=== PATIENT | male | born 1955 | race Caucasian/White ===

== ENCOUNTER 2021-05-18 17:44 | Emergency (ER) | payer MEDICARE ==
--- NOTE | 2021-05-18 17:57 | ED ---
General Adult HPI <Fouzia Palmer - Last Filed: 05/18/21 17:53> - General Source: patient, family, RN notes reviewed, old records reviewed - History of Present Illness -: hour(s) (5) Severity scale (1-10): 0 Consistency: now resolved Associated Symptoms: diaphoresis, malaise, other (dizziness) Treatments Prior to Arrival: Aspirin (baby) <Camilo Ruffin - Last Filed: 05/18/21 22:43> - General Stated complaint: Cardiac history, dizziness, sweats Time Seen by Provider: 05/18/21 17:53 - History of Present Illness Initial comments: 66 year-old male patient presents for evaluation after having an episode of sweating. States that it started when he woke up from a nap. He did have a cardiac stent put in one year ago. He is reporting some dizziness. Denies any chest pain or shortness of breath. States he does feel like there is some in digestion or like he has to burp. States his blood pressures were mildly elevated this evening. Denies fever or chills. Denies any vomiting or diarrhea. Denies history of diabetes or low blood sugars. Did take a baby aspirin prior to arrival. (Fouzia Palmer) Well-appearing 66-year-old male presents to the emergency room, alert and oriented 4 with complaints of dizziness that started after taking a nap today around 4:30. Patient states that he was out golfing this afternoon and he had not eaten anything since breakfast. He states when he came home and lay down to take a nap he woke up diaphoretic and dizzy. He denies any chest pain or difficulty breathing no recent sick contacts. He does have a history of hypertension and hypercholesterolemia and cardiac stent that was placed in April of last year. He does take carvedilol baby aspirin and a statin. This has never happened to him before. His symptoms have resolved. He states he normally has a heart rate around 50. (Camilo Ruffin) - Related Data Allergies Allergy/AdvReac Type Severity Reaction Status Date / Time No Known Allergies Allergy Verified 05/18/21 17:58 Review of Systems ROS Other: All systems not noted in ROS Statement are negative. <Fouzia Palmer - Last Filed: 05/18/21 17:53> ROS Other: All systems not noted in ROS Statement are negative. <Camilo Ruffin - Last Filed: 05/18/21 22:43> ROS Statement: Those systems with pertinent positive or pertinent negative responses have been documented in the HPI. General Exam General appearance: alert, in no apparent distress, other (This is a well developed, well nourished adult male patient in no acute distress.) Eye exam: Present: normal appearance, PERRL, EOMI. Absent: scleral icterus, conjunctival injection, periorbital swelling ENT exam: Present: normal exam, normal oropharynx, mucous membranes moist Cardiovascular Exam: Present: normal rhythm, bradycardia, normal heart sounds. Absent: systolic murmur, diastolic murmur, rubs, gallop, clicks GI/Abdominal exam: Present: soft, normal bowel sounds. Absent: distended, tenderness, guarding, rebound, rigid Neurological exam: Present: alert, oriented X3, CN II-XII intact Psychiatric exam: Present: normal affect, normal mood Skin exam: Present: warm, dry, intact, normal color. Absent: rash <Fouzia Palmer - Last Filed: 05/18/21 17:53> Limitations: no limitations General appearance: alert, in no apparent distress Head exam: Present: atraumatic, normocephalic, normal inspection Eye exam: Present: normal appearance, PERRL, EOMI. Absent: scleral icterus, conjunctival injection, periorbital swelling ENT exam: Present: normal exam, normal oropharynx, mucous membranes moist Neck exam: Present: normal inspection, full ROM. Absent: tenderness, meningismus, lymphadenopathy, thyromegaly Respiratory exam: Present: normal lung sounds bilaterally. Absent: respiratory distress, wheezes, rales, rhonchi, stridor, chest wall tenderness, accessory muscle use Cardiovascular Exam: Present: bradycardia, normal heart sounds. Absent: JVD GI/Abdominal exam: Present: soft, normal bowel sounds, hyperactive bowel sounds. Absent: distended, tenderness, guarding, rebound, rigid Extremities exam: Present: normal inspection, full ROM, normal capillary refill. Absent: tenderness, pedal edema, joint swelling, calf tenderness Back exam: Absent: tenderness Neurological exam: Present: alert, oriented X3 Psychiatric exam: Present: normal affect, normal mood Skin exam: Present: warm, dry, intact, normal color. Absent: rash, cyanosis, diaphoretic, petechiae, pallor <Camilo Ruffin - Last Filed: 05/18/21 22:43> Course Vital Signs 05/18/21 05/18/21 05/18/21 17:52 20:35 21:15 Temperature 97.6 F 97.9 F Pulse Rate 54 L 49 L Pulse Rate [ 51 L Right Pulse Oximetery] Respiratory 19 18 18 Rate Blood Pressure 160/86 174/95 Blood Pressure 122/87 [Right Arm Sitting] Blood Pressure 115/80 [Right Arm Standing] Blood Pressure 142/81 [Right Arm Supine] O2 Sat by Pulse 97 97 Oximetry EKG Findings - EKG Results: EKG: sinus rhythm (Ventricular rate of 46, MI interval 0.220, QRS 0.102, QTC 0.441; first-degree AV block) <Camilo Ruffin - Last Filed: 05/18/21 22:43> Medical Decision Making - Lab Data Result diagrams: 05/18/21 18:33 05/18/21 18:33 <Camilo Ruffin - Last Filed: 05/18/21 22:43> - Medical Decision Making Well-appearing 66-year-old male presents to the emergency room, alert and oriented 4 with complaints of dizziness that started after taking a nap today around 4:30. Patient states that he was out golfing this afternoon and he had not eaten anything since breakfast. He states when he came home and lay down to take a nap he woke up diaphoretic and dizzy. He denies any chest pain or difficulty breathing no recent sick contacts. He does have a history of hypertension and cardiac stent that was placed in April of last year. He does take carvedilol, baby aspirin and a statin. His symptoms have resolved. He states he normally has a heart rate around 50. EKG shows sinus bradycardia with a first-degree AV block rate of 46. No ST el evation. Troponin is negative at 0.012. Electrolytes are unremarkable however his blood glucose level was 69. This is consistent with patient not eating anything since this morning's breakfast. There is no evidence of leukocytosis. Chest x-ray shows normal chest, heart and mediastinum. Lungs are clear. Patient has had no further episodes in the emergency room. He has had no symptoms of shortness of breath or chest pain or dizziness. His heart rate is normally bradycardic around 50. His blood glucose is up to 170. This is likely a hypoglycemic episode that caused his dizziness and diaphoresis. He is tolerating fluids and food in the emergency room. He'll be discharged home to follow up with his primary care doctor this week. Return to the emergency room with any new or worsening symptoms. Case was discussed with Dr. Thompson. (Camilo Ruffin) - Lab Data Lab Results 05/18/21 05/18/21 05/18/21 Range/Units 18:33 18:33 18:33 WBC 9.5 (3.8-10.6) k/uL RBC 5.64 (4.30-5.90) m/uL Hgb 17.4 (13.0-17.5) gm/dL Hct 51.8 (39.0-53.0) % MCV 91.9 (80.0-100.0) fL MCH 30.8 (25.0-35.0) pg MCHC 33.5 (31.0-37.0) g/dL RDW 12.0 (11.5-15.5) % Plt Count 255 (150-450) k/uL MPV 7.7 Neutrophils % 82 % Lymphocytes % 9 % Monocytes % 5 % Eosinophils % 2 % Basophils % 1 % Neutrophils # 7.8 H (1.3-7.7) k/uL Lymphocytes # 0.8 L (1.0-4.8) k/uL Monocytes # 0.5 (0-1.0) k/uL Eosinophils # 0.2 (0-0.7) k/uL Basophils # 0.1 (0-0.2) k/uL PT 10.6 (9.0-12.0) sec INR 1.0 (<1.2) APTT 23.5 (22.0-30.0) sec Sodium 140 (137-145) mmol/L Potassium 4.3 (3.5-5.1) mmol/L Chloride 101 (98-107) mmol/L Carbon Dioxide 28 (22-30) mmol/L Anion Gap 11 mmol/L BUN 17 (9-20) mg/dL Creatinine 1.07 (0.66-1.25) mg/dL Est GFR (CKD-EPI)AfAm 83 (>60 ml/min/1.73 sqM) Est GFR (CKD-EPI)NonAf 72 (>60 ml/min/1.73 sqM) Glucose 69 L (74-99) mg/dL Calcium 9.9 (8.4-10.2) mg/dL Magnesium 2.1 (1.6-2.3) mg/dL Total Bilirubin 0.9 (0.2-1.3) mg/dL AST 26 (17-59) U/L ALT 20 (4-49) U/L Alkaline Phosphatase 102 (38-126) U/L Troponin I (0.000-0.034) ng/mL Total Protein 8.1 (6.3-8.2) g/dL Albumin 5.0 (3.5-5.0) g/dL Urine Color Urine Appearance (Clear) Urine pH (5.0-8.0) Ur Specific [place] (1.001-1.035) Urine Protein (Negative) Urine Glucose (UA) (Negative) Urine Ketones (Negative) Urine Blood (Negative) Urine Nitrite (Negative) Urine Bilirubin (Negative) Urine Urobilinogen (<2.0) mg/dL Ur Leukocyte Esterase (Negative) Urine RBC (0-5) /hpf Ur Squamous Epith Cells (0-4) /hpf Urine Mucus (None) /hpf 05/18/21 05/18/21 Range/Units 18:33 20:35 WBC (3.8-10.6) k/uL RBC (4.30-5.90) m/uL Hgb (13.0-17.5) gm/dL Hct (39.0-53.0) % MCV (80.0-100.0) fL MCH (25.0-35.0) pg MCHC (31.0-37.0) g/dL RDW (11.5-15.5) % Plt Count (150-450) k/uL MPV Neutrophils % % Lymphocytes % % Monocytes % % Eosinophils % % Basophils % % Neutrophils # (1.3-7.7) k/uL Lymphocytes # (1.0-4.8) k/uL Monocytes # (0-1.0) k/uL Eosinophils # (0-0.7) k/uL Basophils # (0-0.2) k/uL PT (9.0-12.0) sec INR (<1.2) APTT (22.0-30.0) sec Sodium (137-145) mmol/L Potassium (3.5-5.1) mmol/L Chloride (98-107) mmol/L Carbon Dioxide (22-30) mmol/L Anion Gap mmol/L BUN (9-20) mg/dL Creatinine (0.66-1.25) mg/dL Est GFR (CKD-EPI)AfAm (>60 ml/min/1.73 sqM) Est GFR (CKD-EPI)NonAf (>60 ml/min/1.73 sqM) Glucose (74-99) mg/dL Calcium (8.4-10.2) mg/dL Magnesium (1.6-2.3) mg/dL Total Bilirubin (0.2-1.3) mg/dL AST (17-59) U/L ALT (4-49) U/L Alkaline Phosphatase (38-126) U/L Troponin I <0.012 (0.000-0.034) ng/mL Total Protein (6.3-8.2) g/dL Albumin (3.5-5.0) g/dL Urine Color Yellow Urine Appearance Clear (Clear) Urine pH 5.0 (5.0-8.0) Ur Specific [place] 1.013 (1.001-1.035) Urine Protein Negative (Negative) Urine Glucose (UA) Negative (Negative) Urine Ketones Trace H (Negative) Urine Blood Trace H (Negative) Urine Nitrite Negative (Negative) Urine Bilirubin Negative (Negative) Urine Urobilinogen <2.0 (<2.0) mg/dL Ur Leukocyte Esterase Negative (Negative) Urine RBC 1 (0-5) /hpf Ur Squamous Epith Cells <1 (0-4) /hpf Urine Mucus Rare H (None) /hpf Disposition <Fouzia Palmer - Last Filed: 05/18/21 17:53> Is patient prescribed a controlled substance at d/c from ED?: No Time of Disposition: 21:24 <Camilo Ruffin - Last Filed: 05/18/21 22:43> Clinical Impression: Hypoglycemia Disposition: HOME SELF-CARE Condition: Good Instructions (If sedation given, give patient instructions): Non-diabetic Hypoglycemia (ED) Additional Instructions: Follow-up with your primary care doctor this week. Return to the emergency room with any new or worsening symptoms. Referrals: Nonstaff,Physician [Primary Care Provider] - 1-2 days
[2021-05-18 18:41] LABS: Basophils # (A) 0.1 k/uL (0-0.2); Basophils % (A) 1 %; Eosinophils # (A) 0.2 k/uL (0-0.7); Eosinophils % (A) 2 %; HCT 51.8 % (39.0-53.0); HGB 17.4 gm/dL (13.0-17.5); Lymphocytes # (A) 0.8 k/uL (1.0-4.8); Lymphocytes % (A) 9 %; MCH 30.8 pg (25.0-35.0); MCHC 33.5 g/dL (31.0-37.0); MCV 91.9 fL (80.0-100.0); Mean Platelet Volume 7.7; Monocytes # (A) 0.5 k/uL (0-1.0); Monocytes % (A) 5 %; Neutrophils # (A) 7.8 k/uL (1.3-7.7); Neutrophils % (A) 82 %; Platelet Count 255 k/uL (150-450); RBC 5.64 m/uL (4.30-5.90); WBC 9.5 k/uL (3.8-10.6)
[2021-05-18 18:53] LABS: Calcium 9.9 mg/dL (8.4-10.2); Magnesium 2.1 mg/dL (1.6-2.3); Potassium 4.3 mmol/L (3.5-5.1); Total Bilirubin 0.9 mg/dL (0.2-1.3); Total Protein 8.1 g/dL (6.3-8.2)
[2021-05-18 19:06] LABS: Partial Thromboplastin Time 23.5 sec (22.0-30.0); Prothrombin Time 10.6 sec (9.0-12.0)
--- NOTE | 2021-05-18 20:12 | XR ---
EXAMINATION TYPE: XR chest 2V DATE OF EXAM: 05/18/2021 COMPARISON: NONE HISTORY: Chest pain TECHNIQUE: 2 views FINDINGS: Heart and mediastinum are normal. Lungs are clear. Diaphragm is normal. Bony thorax is inta ct. IMPRESSION: Normal chest.
[2021-05-18 20:48] VITALS: RESP 18
[2021-05-18 20:55] LABS: Appearance,Urine Clear (Clear); Bilirubin,Urine Negative (Negative); Blood,Urine Trace (Negative); Color,Urine Yellow; Glucose,Urine (UA) Negative (Negative); Ketones,Urine Trace (Negative); Leukocyte Esterase,Urine Negative (Negative); Mucus,Urine Rare /hpf; Nitrite,Urine Negative (Negative); Protein,Urine Negative (Negative); RBC,Urine 1 /hpf (0-5); Specific Gravity,Urine 1.013 (1.001-1.035); Squamous Epithelial Cell,Urine <1 /hpf (0-4); Urobilinogen,Urine <2.0 mg/dL (<2.0)
[2021-05-18 21:35] VITALS: TEMP 97.9
[2021-05-18 22:43] LABS: Glucose,Whole Blood 173 mg/dL (75-99)
[2021-05-18 23:18] VITALS: BP 121/79; PULSE 48
== END 2021-05-18 23:19 | disposition home or self-care (01) ==
LOC: EC 17:44
DX: E16.2 Hypoglycemia, unspecified (principal); E78.5 Hyperlipidemia, unspecified
CPT/HCPCS: 36415; 71046; 80053; 81001; 83735; 84484; 85025; 85610; 85730; 93005; 99284